=== PATIENT | female | born 1990 | race Caucasian/White ===

== ENCOUNTER 2016-12-28 08:37 | Day surgery (SDC) | payer OTHER ==
[~2016-12-28] VITALS: Ht 172.7 cm; Wt 53.0 kg
[~2016-12-28 08:37] MED LIST: ADVIL,NUPRIN,M200 MG PO; ALDACTONE25 MG PO; NEXPLANON68 MG SC; TYLENOL EXTRA500 MG PO
[2016-12-28 09:39] VITALS: BP 119/81
[2016-12-28 12:25] VITALS: BP 134/83
[2016-12-28 13:34] VITALS: BP 103/71
[2017-01-03 08:28] LABS: INTERNAL CONTROL VALID? YES
== END 2016-12-28 13:40 | disposition home or self-care (01) ==
LOC: SDC 08:37
PROVIDERS: Otolaryngology
PROC: 0CTPXZZ Resection of Tonsils, External Approach (ICD-10-PCS; principal; 2016-12-28)
DX: J35.01 Chronic tonsillitis (principal); Z68.1 Body mass index [BMI] 19.9 or less, adult; Z82.49 Family history of ischemic heart disease and other diseases of the circulatory system; Z81.1 Family history of alcohol abuse and dependence
CPT/HCPCS: 84703; J0131; J0330; J1100; J2250; J2405; J3010